=== PATIENT | male | born 1965 | race Two or more races ===

== ENCOUNTER 2019-08-20 22:51 | Inpatient (IN) | payer MEDICAID, OTHER ==
[~2019-08-20] VITALS: Ht 188 cm; Wt 96.2 kg
--- NOTE | 2019-08-21 02:40 | NUR ---
ESTIMATION MANAGER NOTE ADMITTED PT FROM [facility] A DIRECT ADMISSION. PT IS 54 MALE, A/O X 4, SOB ON EXCRETION NOTED. ON 4L VIA N/C O2 SAT 97%. ON TELE MONITOR SR HR 85DENIES PAIN. LAC #20 G SL INTACT AND PATENT. ORIENTED THE PT TO HIS ROOM. WAITING FOR ADMITTING ORDERS. SIDE RAILS UP X 2 AND CALL LIGHT WITHIN REACH. CONTINUE TO MONITOR HIM
--- NOTE | 2019-08-21 02:58 | NUR ---
[id number] PAGED STEFANY REED FOR ADMISSION ORDERS. AWAITING CALL BACK
--- NOTE | 2019-08-21 04:30 | NUR ---
NOISE TESTER NOTE STEFANY REED VISITED THE FLOOR, REMINDED HIM ABOUT THE ADMITTING ORDERS. PER STEFANY HE WILL PUT IT IN ALEX.
[2019-08-21] MEDS ORDERED: Z GUARD REMEDY 2 OZ OINT TP PRN (05:30)
[2019-08-21] MEDS ORDERED: MORPHINE SULFATE INJ 2 MG/ML DISP.SYRIN IV PRN (05:30)
[2019-08-21] MEDS ORDERED: ZOLPIDEM TARTRATE 5 MG TABLET PO PRN (05:30)
[2019-08-21] MEDS ORDERED: MAGNESIUM HYDROXIDE 30 ML UDC PO PRN (05:30)
[2019-08-21] MEDS ORDERED: ONDANSETRON HCL/PF 4 MG/2 ML VIAL IVP PRN (05:30)
[2019-08-21] MEDS ORDERED: MAG HYDROX/AL HYDROX/SIMETH 30 ML UDC PO PRN (05:30)
[2019-08-21] MEDS ORDERED: ACETAMINOPHEN 325 MG TABLET PO PRN (05:30)
[2019-08-21] MEDS ORDERED: HYDROCODONE/APAP 5/325MG 1 EACH TABLET PO PRN (05:30)
--- NOTE | 2019-08-21 05:30 | NUR ---
RESOURCE MANAGEMENT PLANNER NOTE STEFANY BABIN GAVE ADMITTING ORDERS. PT IS ADMITTED DX ABD PAIN. ALL THE ORDERS CHECKED AND CARRIED OUT
[2019-08-21] MEDS ORDERED: PIPERACILLIN /TAZOBACTAM 3.375 G in IV D5W 50 ML IV SCH (06:00)
[2019-08-21] MEDS ORDERED: PIPERACILLIN /TAZOBACTAM 3.375 G in IV D5W 50 ML IV ONE (06:00)
[2019-08-21] MEDS ORDERED: PIPERACILLIN /TAZOBACTAM 3.375 G VIAL IV ONE (06:18)
--- NOTE | 2019-08-21 06:36 | NUR ---
YARD HOSTLER NOTE PT IN BED ASLEEP, AROUSABLE. NO DISTRESS OR DISCOMFORT NOTED. DENIES PAIN. STARTED ZOSYN ATB ORDERED. ON TELE SR 84. SIDE RAILS UP X 2 AND CALL LIGHT WITHIN REACH. WILL ENDORSE TO DAY SHIFT NURSE FOR CONTINUE TO CARE.
[2019-08-21 07:15] LABS: BASOPHILS % (AUTO) 0.3 % (0.0-2.0); EOSINOPHILS % (AUTO) 3.3 % (0.0-6.0); HEMATOCRIT 44 % (39-51); HEMOGLOBIN 14.5 g/dL (13.5-17.5); LYMPHOCYTES # (AUTO) 1.5 /CMM (0.8-4.8); LYMPHOCYTES % (AUTO) 14.2 % (20.0-44.0); MEAN CORPUSCULAR HGB CONC 33 g/dl (31.0-36.0); MEAN CORPUSCULAR VOLUME 90 fL (80-96); MONOCYTES # (AUTO) 0.6 /CMM (0.1-1.30); MONOCYTES % (AUTO) 5.6 % (2.0-12.0); NEUTROPHILS # (AUTO) 8.2 /CMM (1.8-8.9); NEUTROPHILS % (AUTO) 76.6 % (43.0-81.0); PLATELET COUNT (AUTO) 215 /CMM (150-450); RED BLOOD CELL COUNT(AUTO) 4.88 MIL/uL (4.5-6.0); WHITE BLOOD COUNT (AUTO) 10.7 K/uL (4.3-11.0)
[2019-08-21 07:25] LABS: CALCIUM, SERUM 8.7 mg/dL (8.5-10.1); CARBON DIOXIDE 31 mmol/L (21-32); CHLORIDE 104 mmol/L (98-107); CREATININE 1.2 mg/dL (0.6-1.3); GLUCOSE 109 mg/dL (74-106); SODIUM SERUM 141 mmol/L (136-145); UREA NITROGEN, BLOOD 24 mg/dL (7-18)
[2019-08-21] MEDS ORDERED: PANTOPRAZOLE 40 MG VIAL IV SCH (07:30)
--- NOTE | 2019-08-21 07:30 | NUR ---
RN NOTE: RECEIVED PATIENT IN BED, AWAKE, ALERT AND VERBALLY RESPONSIVE. PATIENT WAS FARSI AND WALLISIAN SPEAKING MOSTLY AND AN WALLISIAN AND FARSI SPEAKING NURSE WERE USED TO TRANSLATE FOR THE PATIENT. RESPIRATION WAS EVEN AND UNLABORED SATURATING 96% WITH O2 4L/MIN VIA NC. HOB ELEVATED. ON SUPPORT ASSISTANT SR HR= 90. PATIENT DENIED ANY PAIN AT THIS TIME. KEPT NPO EXCEPT MEDICATIONS PER MD ORDER. AFEBRILE. SKIN WARM TO TOUCH. BED ALARMED AND LOCKED AT ALL TIMES. (L) AC IV SITE NOTED PATENT AND INTACT. CALL LIGHT WITHIN REACH. NEEDS ANTICIPATED.
[2019-08-21 07:36] LABS: ALANINE AMINOTRANSFERASE 21 U/L (12-78); ALBUMIN 2.8 g/dL (3.4-5.0); ALKALINE PHOSPHATASE 83 U/L (46-116); ASPARTATE AMINOTRANSFERASE 16 U/L (15-37); B-TYPE NATRIURETIC PEPTIDE 70 PG/ML (0-125); BILIRUBIN,TOTAL 0.4 mg/dL (0.2-1.0); CHOLESTEROL 198 mg/dL (<200); HDL CHOLESTEROL 44 mg/dL (40-60); LDL 136 mg/dL (0-99); LIPASE 71 U/L (73-393); MAGNESIUM 1.9 mg/dL (1.8-2.4); PHOSPHORUS 2.7 mg/dL (2.5-4.9); THYROID STIMULATING HORMONE 0.705 uIU/mL (0.358-3.74); TOTAL PROTEIN, SERUM 6.8 g/dL (6.4-8.2); TRIGLYCERIDES 69 mg/dL (30-150)
[2019-08-21 08:00] VITALS: BP 164/86
[2019-08-21] MEDS ORDERED: DOCUSATE SODIUM 100 MG CAPSULE PO SCH (09:00)
[2019-08-21 12:00] VITALS: BP 153/90
[2019-08-21] MEDS ORDERED: PIPERACILLIN /TAZOBACTAM 3.375 G in IV D5W 100 ML IV SCH (12:00)
[2019-08-21 12:01] VITALS: BP 153/90
--- NOTE | 2019-08-21 12:18 | NUR ---
RN NOTE: DR. KRAUSE WAS PRESENT IN THE UNIT AND WAS INTERVIEWING THE PATIENT AT THE BEDSIDE WITH THE [place] SPEAKING STAFF (FELECIA Sesay) TRANSLATING FOR THE DOCTOR. THE INTERVIEW GOES ON, THE PATIENT WAS TOLD BY DR. KRAUSE THAT SHE WOULD ORDER SOME TEST FOR THE PATIENT, BUT THE PATIENT STRONGLY REFUSED TO GET SOME MORE TEST DONE ON HIM. HE TOLD THE MD "I AM OKAY. I DON'T WANT ANY TEST ANY MORE. I WANT TO GO HOME." PATIENT STATED THAT HE WAS HOMELESS AND DESPITE EXPLAINING TO HIM THE RISKS AND BENEFITS OF LEAVING THE HOSPITAL AGAINST MEDICAL ADVICE THE PATIENT STILL WANTED TO GO OUT OF THE HOSPITAL. DR. KRAUSE WAS AWARE AND WAS OK FOR THE PATIENT'S AMA. AMA FORM WAS SIGNED BY THE PATIENT. ID BAND AND (L) AC IV SITE WAS REMOVED AND PATIENT REFUSED TO TAKE AND SIGN THE EXIT CARE PAPERS WITH HIM. THE FARSI SPEAKING NURSE (MERCY Mack) EXPLAINED TO THE PATIENT THAT HE NEEDED TO F/U WITH HIS PCP IN 3-[address] OF THE [address] CHEST RESULT. PATIENT AGREED AND UNDERSTOOD. HOMELESS WAIVER FORM WAS ALSO SIGNED BY THE PATIENT. AMA AND HOMELESS WAIVER FORMS WERE FILED TO THE PATIENT'S CHART.
--- NOTE | 2019-08-21 13:00 | NUR ---
Patient Transition Specialist Consult requested by Dr. David Arreola for Heroin Use and Homelesness. Upon Appellate Court Clerk Consult, the pt. had already left AMA, refusing care, resources, and referrals. Per Charge Nurse, pt. expressed wanting to be discharged to self and wanting to make their own transportation and housing arrangements. Per Charge Nurse, pt. was offered clothing however, he declined. Pt. left AMA at 11:50 am after seeing the MD and signing Homeless Waiver Form. No further action required.
== END 2019-08-21 13:30 | disposition left against medical advice (07) ==
LOC: TELE1 08-21 02:16
PROVIDERS: ADMIT Student in an Organized Health Care Education/Training Program; ATTEND Student in an Organized Health Care Education/Training Program
DX: K80.50 Calculus of bile duct without cholangitis or cholecystitis without obstruction (principal); N17.0 Acute kidney failure with tubular necrosis; F11.20 Opioid dependence, uncomplicated; I10 Essential (primary) hypertension; Z59.0 Homelessness; D72.829 Elevated white blood cell count, unspecified; E86.0 Dehydration; I25.10 Atherosclerotic heart disease of native coronary artery without angina pectoris; K59.00 Constipation, unspecified; K40.90 Unilateral inguinal hernia, without obstruction or gangrene, not specified as recurrent; J21.9 Acute bronchiolitis, unspecified; R91.8 Other nonspecific abnormal finding of lung field; J40 Bronchitis, not specified as acute or chronic; J43.9 Emphysema, unspecified
CPT/HCPCS: 36415; 80053-TC; 80061-TC; 83690-TC; 83735-TC; 83880; 84100-TC; 84443-TC; 84484-TC; 85025-TC; 87081-TC; C9113; G0378; J2270; J2543; J7050; J7060